=== PATIENT | female | born 2000 | race Caucasian/White ===

== ENCOUNTER 2025-01-23 09:33 | Emergency (ER) | payer BC, SELFPAY ==
--- OUTSIDE RECORDS SUMMARY | 2025-01-22 10:00 | XMS_ITS | Encounter Summary ---
Author Organization [facility] Address [address] [place] [address] Care Team Providers Care Olericulturist Name Role Phone Rene Nguyen Primary Care Provider [phone] Reason for Visit * Reason Comments URI Pt c/o fever and chi lls with nasal drainage, sore throat. Pt symptoms X 1 week Encounter Details Date Type Department Care Team (Late st Contact Info) Description 01/22/2025 10:00 AM COMMERCIAL CARPENTER Office Visit [facility] Family & Internal Medicine [address] [address] Rene Nguyen PA [address] [place] [address] URI (Pt c/o fever and chills with nasal drainage, sore throat. Pt symptoms X 1 week) Social History Tobacco Use Types Packs/Day Years Used Date Smoking Tobacco: Never Passive Smoke Exposure: Never Smokeless Tobacco: Never Tobacco Cessation:Counseling Given: No Alcohol Use Standard Drinks/Week Comments Yes 0 (1 standard drink = 0.6 oz pur e alcohol) social; AUDIT-C Answer Date Recorded Frequency of Alcohol Consumption Never 01/24/2018 Average Number of Drinks Not on file 018 Frequency of Binge Drinking Not on file 11/2017 PHQ-2 Answer Date Recorded Patient Health Questionnaire-2 Score 0 01/18/2025 Comments No Sex and Gender Information Value Date Recorded Sex Assigned at Not on file Legal Sex Female 8:38 PM CDT Gender Identity Not on file Sexual Orientation Not on file documented as of this encounter Last Filed Vital Signs Vital Sign Reading Time Taken Comments Blood Pressure 118/77 01/22/2025 10:04 AM COMMERCIAL CARPENTER Pulse 125 01/22/2025 10:04 AM COMMERCIAL CARPENTER Temperature 38.1 C (100.5 F) 01/22/2025 10:04 AM COMMERCIAL CARPENTER Respiratory Rate 18 01/22/2025 10:04 AM COMMERCIAL CARPENTER Oxygen Saturation 97% 01/22/2025 10:04 AM COMMERCIAL CARPENTER Inhaled Oxygen Concentration - - Weight 73.9 kg (163 lb) 01/22/2025 10:04 AM COMMERCIAL CARPENTER Height 157.5 cm (5' 2) 01/22/2025 10:04 AM COMMERCIAL CARPENTER Body Mass Index 29.81 01/22/2025 10:04 AM COMMERCIAL CARPENTER documented in this encounter Progress Notes * LEENA Bustillos - 01/22/2025 10:00 AM CST Subjective Reason for Visit: URI (Pt c/o fever and chills with nasal drainage, sore throat. Pt symptoms X 1 week) History of Present Illness: 24-year-old female complains of fever chills nasal discharge and sore throat. She was seen 5 days ago in the walk-in clinic given Augmentin. Tolerating medication well and states that the swelling inthe neck has gone down. She did run a fever yesterday. Still has sore throat. Would like reevaluated URI ROS: Review of Systems All other systems reviewed and are negative. Medications: Current Outpatient Medications: amoxicillin-clavulanate (AUGMENTIN) 875-125 MG tablet, Take 1 tablet (875 mg total) by mouth 2 (two) times daily for 10 days., Disp: 20 tablet, Rfl: 0 ENILLORING 0.12-0.015 MG/24HR RING, , Disp: , Rfl: fluticasone propionate (FLONASE) 50 MCG/ACT nasal spray, 1 spray by Nasal route daily. 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 Constitutional: Appearance: Normal appearance. HENT: Right Ear: Tympanic membrane normal. Left Ear: Tympanic membrane normal. Nose: Nose normal. Mouth/Throat: Mucous membranes are moist. Oropharynx is clear. Comments: Bilateral 2+ red tonsils with a white exudate more on the right than the left. Seems to be more ulcerative in appearance. Eyes: Pupils: Pupils are equal, round, and reactive to light. Cardiovascular: Rate and Rhythm: Normal rate and regular rhythm. Pulses: Normal pulses. Heart sounds: Normal heart sounds. No murmur heard. No gallop. Pulmonary: Effort: Pulmonary effort is normal. No respiratory distress. Breath sounds: Normal breath sounds. No wheezing or rales. Musculoskeletal: Cervical back: Normal range of motion. Skin: General: Skin is warm and dry. Capillary Refill: Capillary refill takes less than 2 seconds. Neurological: Mental Status: She is alert. Psychiatric: Mood and Affect: Mood normal. Behavior: Behavior normal. Thought Content: Thought content normal. Judgment: Judgment normal. Filed Vitals: 01/22/25 1004 BP: 118/77 Pulse: (!) 125 Resp: 18 Temp: 100.5 ??F (38.1 ??C) TempSrc: Core SpO2: 97% Weight: 73.9 kg (163 lb) Height: 1.575 m (5' 2) Results for orders placed or performed in visit on 01/22/25 HETEROPHILE ANTIBODIES,SCREEN Result Value Ref Range HETEROPHILE ANTIBODIES NEGATIVE NEGATIVE Internal Control: VALID VALID STREP A RAPID Specimen: THROAT Result Value Ref Range RAPID STREP TEST NEGATIVE NEGATIVE Internal Control: VALID VALID Diagnoses/Impression: 1. Sore throat STREP A RAPID STREP A RAPID LINO OSEI VIRAL CAPSID AG, AB IGM HETEROPHILE ANTIBODIES,SCREEN CANCELED: HETEROPHILE ANTIBODIES,SCREEN Recommendations and Plan: Negative strep, negative Monospot. Will send for Lino-Osei evaluation. Most likely mono due to 2negative strep test and not resolving with amoxicillin. Supportive care only. Follow-up as needed Orders Placed This Encounter LINO OSEI VIRAL CAPSID AG, AB IGM HETEROPHILE ANTIBODIES,SCREEN STREP A RAPID STREP A RAPID Reviewed and updated this visit by provider: LEENA BUSTILLOS Referring Provider: No ref. provider found PCP: LEENA BUSTILLOS [1] Past Medical History: Diagnosis Date GERD (gastroesophageal reflux disease) Pinworm infection 12/16/2017 [2] Past Surgical History: Procedure Laterality Date NONE [3] Social History Socioeconomic History Marital status: Single Tobacco Use Smoking status: Never Passive exposure: Never Smokeless tobacco: Never Vaping Use Vaping status: Never Used Substance and Sexual Activity Alcohol use: Yes Comment: social; Drug use: No Sexual activity: Yes Partners: Male control/protection: Injection Comment: 1 partner in the past year Social History Narrative Lives with mom [4] Family History Problem Relation Name Age of Onset Hypertension Mother Diabetes Father No Known Problems Sister No Known Problems Sister No Known Problems Brother No Known Problems Maternal Grandmother No Known Problems Maternal Grandfather No Known Problems Paternal Grandmother Cancer Paternal Grandfather unknown Cancer Paternal Aunt unknown ERCIAL CARPENTER documented in this encounter Plan of Treatment Pending Results Name Type Priority Associated Diagnoses Date /Time LINO OSEI VIRAL CAPSID AG, AB IGM Lab Routine Sore throat 01/22/2025 10:59 AM COMMERCIAL CARPENTER Scheduled Orders Name Type Priority Associated Diagnoses Orde r Schedule STREP A RAPID Microbiology Routine Sore throat Expected: 01/22/2025, Expires: 01/22/2026 LINO OSEI VIRAL CAPSID AG, AB IGM Lab Routine Sore throat Expected: 01/22/2025, Expires: 01/22/2026 documented as of this encounter Procedures Procedure Name Priority Date/Time Associated Diagnosis Comments STREP A RAPID Routine 01/22/2025 Sore throat HETEROPHILE ANTIBODIES,SCREEN Routine 01/22/2025 Sore throat documented in this encounter Results * HETEROPHILE ANTIBODIES,SCREEN (01/22/2025) HETEROPHILE ANTIBODIES NEGATIVE NEGATIVE [id number], [place] Internal Control: VALID VALID [id number], [facility] 01/22/2025 us Rene [facility] Final Result Performing Organization Address [facility]/ZIP Co de Phone Number -[phone] MARISSA SE[address] [place] [address] [place] [address], [place] [phone] * STREP A RAPID (01/22/2025) RAPID STREP TEST NEGATIVE NEGATIVE [id number] [facility] Internal Control: VALID VALID -[id number] MARISSA SEVERINO [place] STRUCTURE OF ANTERIOR REGION OF NECK / Unknown 01/22/2025 us Rene [facility] - GENERAL ORDERAB LES Final Result Performing Organization Address [facility] Co de Phone Number -[phone] MARISSA SEVERINO [place] [address] [place] [address], [place] [phone] documented in this encounter Visit Diagnoses Diagnosis Sore throat- Primary Acute pharyngitis documented in this encounter Additional Health Concerns Assessment Noted Time PHQ-9 Depression Total Score: 1 05/03/19 22 1:54 PM COMMERCIAL CARPENTER documented as of this encounter Care Teams Olericulturist Relationship Specialty [place] [address] [place] [address] PCP - General PHYSICIAN FIRER POWERHOUSE 09/26/24 documented as of this encounter
--- OUTSIDE RECORDS SUMMARY | 2025-01-22 10:00 | XMS_ITS | Encounter Summary ---
Author Organization [facility] Address [address] [place] [address] Care Team Providers Care Tax Revenue Officer Name Role Phone Rene Nguyen Primary Care Provider [phone] Reason for Visit * Reason Comments URI Pt c/o fever and chi lls with nasal drainage, sore throat. Pt symptoms X 1 week Encounter Details Date Type Department Care Team (Late st Contact Info) Description 01/22/2025 10:00 AM WIPING CLOTH CUTTER Office Visit [facility] Medical Group Family & Internal Medicine [address] [address] Rene Nguyen PA [address] [place] [address] URI (Pt c/o fever and chills [...] Comments Blood Pressure 118/77 01/22/2025 10:04 AM WIPING CLOTH CUTTER Pulse 125 01/22/2025 10:04 AM WIPING CLOTH CUTTER Temperature 38.1 C (100.5 F) 01/22/2025 10:04 AM WIPING CLOTH CUTTER Respiratory Rate 18 01/22/2025 10:04 AM WIPING CLOTH CUTTER Oxygen Saturation 97% 01/22/2025 10:04 AM WIPING CLOTH CUTTER Inhaled Oxygen Concentration - - Weight 73.9 kg (163 lb) 01/22/2025 10:04 AM WIPING CLOTH CUTTER Height 157.5 cm (5' 2) 01/22/2025 10:04 AM WIPING CLOTH CUTTER Body Mass Index 29.81 01/22/2025 10:04 AM WIPING CLOTH CUTTER documented in this encounter Progress Notes * [...] Paternal Grandfather unknown Cancer Paternal Aunt unknown NG CLOTH CUTTER documented in this encounter Plan of Treatment Pending Results Name Type Priority Associated Diagnoses Date /Time LINO OSEI VIRAL CAPSID AG, AB IGM Lab Routine Sore throat 01/22/2025 10:59 AM WIPING CLOTH CUTTER Scheduled Orders Name Type Priority Associated Diagnoses [...] HETEROPHILE ANTIBODIES,SCREEN (01/22/2025) HETEROPHILE ANTIBODIES NEGATIVE NEGATIVE [id number], [place] Internal Control: VALID VALID [id number], [facility] 01/22/2025 us Rene [facility] Final Result Performing Organization Address [facility]/ZIP Co de Phone Number -[phone] MARISSA SEVERINO [place] [address] [place] [address], [place] [phone] * STREP A RAPID (01/22/2025) RAPID STREP TEST NEGATIVE NEGATIVE [id number] [facility] Internal Control: VALID VALID -[id number] MARISSA SEVERINO [place] STRUCTURE OF ANTERIOR REGION OF NECK / Unknown 01/22/2025 us Rene [facility] - GENERAL ORDERAB LES Final Result Performing Organization Address [facility] Co de Phone Number -[phone] MARISSA SEVERINO [place] [address] [place] [address], [place] [phone] documented in this encounter Visit Diagnoses Diagnosis Sore throat- Primary Acute pharyngitis documented in this encounter Additional Health Concerns Assessment Noted Time PHQ-9 Depression Total Score: 1 05/03/19 22 1:54 PM WIPING CLOTH CUTTER documented as of this encounter Care Teams Tax Revenue Officer Relationship Specialty [place] [address] [place] [address] PCP - General PHYSICIAN ROUGH AND TRUING MACHINE OPERATOR 09/26/24 documented as of this encounter
--- OUTSIDE RECORDS SUMMARY | 2025-01-22 11:10 | XMS_ITS | Encounter Summary ---
Author Organization [facility] Address [address] [place] [address] Care Team Providers Care Optometric Tech Name Role Phone Rene Ngueyn Primary Care Provider [phone] Encounter Details Date Type Department Care Team (Late st Contact Info) Description 01/22/2025 11:10 AM BROKERAGE BRANCH MANAGER Laboratory Only [facility] Medical Group Family & Internal Medicine [facility] [address] [place] [address] Rene Nguyen [place] [id number] [place] [address] Social History Tobacco Use Types Packs/Day Years Used Date Smoking Tobacco: Never Passive Smoke Exposure: Never Smokeless Tobacco: Never Alcohol Use Standard Drinks/Week Comments Yes 0 [...] on file documented as of this encounter Plan of Treatment Not on file documented as of this encounter Procedures Procedure Name Priority Date/Time Associated Diagnosis Comments COLLECTION VENOUS BLOOD VENIPUNCTURE Routine 01/22/2025 11:02 AM BROKERAGE BRANCH MANAGER Sore throat documented in this encounter Visit Diagnoses Diagnosis Sore throat- Primary Acute pharyngitis documented in this encounter Additional Health Concerns Assessment Noted Time PHQ-9 Depression Total Score: 1 05/03/19 22 1:54 PM BROKERAGE BRANCH MANAGER documented as of this encounter Care Teams Optometric Tech Relationship Specialty [place] [address] [place] [address] PCP - General PHYSICIAN HANDMADE TILE ARTIST 09/26/24 documented as of this encounter
--- OUTSIDE RECORDS SUMMARY | 2025-01-22 11:10 | XMS_ITS | Encounter Summary ---
Author Organization [facility] Address [address] [place] [address] Care Team Providers Care Backer Up Name Role Phone Rene Nguyen Primary Care Provider [phone] Encounter Details Date Type Department Care Team (Late st Contact Info) Description 01/22/2025 11:10 AM LABORER CHEESEMAKING Laboratory Only [facility] Medical Group Family & Internal Medicine [facility] [address] [place] [address] Rene Nguyen [place] [address] [place] [address] Social History Tobacco Use Types Packs/Day [...] VENOUS BLOOD VENIPUNCTURE Routine 01/22/2025 11:02 AM LABORER CHEESEMAKING Sore throat documented in this encounter Visit Diagnoses Diagnosis Sore throat- Primary Acute pharyngitis documented in this encounter Additional Health Concerns Assessment Noted Time PHQ-9 Depression Total Score: 1 05/03/19 22 1:54 PM LABORER CHEESEMAKING documented as of this encounter Care Teams Backer Up Relationship Specialty [place] [address] [place] [address] PCP - General PHYSICIAN DIGITAL PHOTO PRINTER 09/26/24 documented as of this encounter
--- OUTSIDE RECORDS SUMMARY | 2025-01-22 13:11 | XMS_ITS | Encounter Summary ---
Author Organization [facility] Address [address] [place] [address] Care Team Providers Care Hook And Eye Sewing Machine Operator Name Role Phone Rene Nguyen Primary Care Provider Encounter Details Date Type Department Care Team (Late st Contact Info) Description 01/22/2025 1:11 PM LACQUER SPRAYER Hospital Encounter [facility] Laboratory [address] [place], [place] [id number] [place] [address] [place] [address] Social History Tobacco Use Types Packs/Day Years [...] as of this encounter Plan of Treatment Pending Results Name Type Priority Associated Diagnoses Date /Time LINO OSEI VIRAL CAPSID AG, AB IGM Lab Routine Sore throat 01/22/2025 10:59 AM LACQUER SPRAYER Scheduled Orders Name Type Priority Associated Diagnoses Orde r Schedule LNIO OSEI VIRAL CAPSID AG, AB IGM Lab Routine Sore throat Once for 1 Occurrences starting 01/22/2025 until 01/22/2025 documented as of this encounter Visit Diagnoses Diagnosis Sore throat Acute pharyngitis documented in this encounter Additional Health Concerns Assessment Noted Time PHQ-9 Depression Total Score: 1 05/03/19 22 1:54 PM LACQUER SPRAYER documented as of this encounter Care Teams Hook And Eye Sewing Machine Operator Relationship Specialty [place] [address] [place] [address] PCP - General PHYSICIAN WHISTLE PUNK 09/26/24 documented as of this encounter
--- OUTSIDE RECORDS SUMMARY | 2025-01-22 13:11 | XMS_ITS | Encounter Summary ---
Author Organization [facility] Address [address] [place] [address] Care Team Providers Care Atg Architect Name Role Phone Rene Nguyen Primary Care Provider [phone] Encounter Details Date Type Department Care Team (Late st Contact Info) Description 01/22/2025 1:11 PM CARPENTER ROUGH Hospital Encounter [facility] Laboratory [address] [place], [place] [phone] [place] [address] [place] [address] Social History Tobacco Use Types Packs/Day Years [...] Lab Routine Sore throat 01/22/2025 10:59 AM CARPENTER ROUGH Scheduled Orders Name Type Priority Associated Diagnoses Orde r Schedule LINO OSEI VIRAL CAPSID AG, AB IGM Lab Routine Sore throat Once for 1 Occurrences starting 01/22/2025 until 01/22/2025 documented as of this encounter Visit Diagnoses Diagnosis Sore throat Acute pharyngitis documented in this encounter Additional Health Concerns Assessment Noted Time PHQ-9 Depression Total Score: 1 05/03/19 22 1:54 PM CARPENTER ROUGH documented as of this encounter Care Teams Atg Architect Relationship Specialty [place] [address] [place] [address] PCP - General PHYSICIAN ASSEMBLER EQUIPMENT 09/26/24 documented as of this encounter
--- NOTE | ~2025-01-23 | CT_ITS ---
EXAMINATION: CT soft tissue neck w con COMPARISON: None HISTORY: Right tonsillar abscess TECHNIQUE: Axial images were obtained with IV contrast. Sagittal, coronal reconstruction images were obtained from the axial views. Omnipaque 370, [address] scan performed using dose optimization techniques including the following automated exposure control; adjustment of mA and/or kV; use of iterative reconstruction technique. Automatic exposure control was used to reduce radiation dose. Permanent radiation dose record is archived to PACS. FINDINGS: Visualized brain parenchyma is unremarkable. There is no thickening of the prevertebral space or asymmetry of the base of the tongue. There is narrowing of the airway with edema of the pontine tonsillar tissue bilaterally with bilateral early probable abscesses noted the largest on the right side 7x 8 mm with dense probable phlegmon . There is no asymmetry of the vocal cords. No thyroid nodules. No lymphadenopathy in the anterior superior mediastinum. There are enlarged lymph nodes in the jugulodigastric spaces the largest right-sided 2.5 x 2 cm. Prominent posterior cervical lymph nodes. No supraclavicular lymphadenopathy. The submandibular and parotid glands appear unremarkable. The lung apices are unremarkable. No sclerotic or lytic lesions. No significant sinusitis. IMPRESSION: Severe tonsillitis with early abscess formation . There is significant narrowing of the airway and close clinical observation is recommended. ENT consultation suggested. Follow-up recommended to evaluate for improvement. Reviewed, dictated and finalized at location P. WRITER HAND IMPRESSION: Severe tonsillitis with early abscess formation . There is signific ant narrowing of the airway and close clinical observation is recommended. ENT consultation suggested. Follow-up recommended to evaluate for improvement.
--- OUTSIDE RECORDS SUMMARY | 2025-01-23 09:35 | XMS_ITS | Encounter Summary ---
Author Organization [facility] Address [address] [place] [address] Care Team Providers Care Clinical Dietitian Name Role Phone Rene Nguyen Primary Care Provider [phone] Encounter Details Date Type Department Care Team (Late st Contact Info) Description 01/18/2025 Results Follow-Up [facility] Medical Group Family & Internal Medicine [facility] [address] [place] [address] [place] [address] [place] [address] STREP A RAPID, CORONAVIRUS (COVID-19) INFLUENZA A & B ANTIGEN IA PANEL, CULTURE STREP A Social History Tobacco Use Types Packs/Day Years [...] on file documented as of this encounter Functional Status * Over the past 2 weeks, how often have you been bothered by any of the following problems? Question Answer Date of Assessment Author Status Little interest or pleasure in doing things Not at all 01/18/2025 7:21 AM BUILDING APPRAISER Tete Garcia MA Act jelena Feeling down, depressed, or hopeless Not at all 01/18/2025 7:21 AM BUILDING APPRAISER Tete Garcia MA Active Patient Health Questionnaire-2 Score 0 01/18/2025 7:21 AM BUILDING APPRAISER Tete Garcia MA Active documented as of this encounter Plan of Treatment Not on file documented as of this encounter Visit Diagnoses Not on filedocumented in this encounter Additional Health Concerns Infection Onset Date Last Indicated Resolved Time Respiratory Rule Out 01/18/2025 01/18/2025 025 7:45 AM BUILDING APPRAISER Assessment Noted Time PHQ-9 Depression Total Score: 1 05/03/19 22 1:54 PM BUILDING APPRAISER documented as of this encounter Care Teams Clinical Dietitian Relationship Specialty [place] [address] [place] [address] PCP - General PHYSICIAN STREET ENGINEER 09/26/24 documented as of this encounter
--- OUTSIDE RECORDS SUMMARY | 2025-01-23 09:35 | XMS_ITS | Encounter Summary ---
Author Organization [facility] Address [address] [place] [address] Care Team Providers Care Nursery Attendant Name Role Phone Rene Nguyen Primary Care Provider [phone] Encounter Details Date Type Department Care Team (Latest Contact Info) Description 01/22/2025 Travel Social History Tobacco Use Types Packs/Day Years [...] filedocumented in this encounter Additional Health Concerns Assessment Noted Time PHQ-9 Depression Total Score: 1 05/03/19 22 1:54 PM ROLL FORMING MACHINE SET UP MECHANIC documented as of this encounter Care Teams Nursery Attendant Relationship Specialty [place] [address] [place] [address] PCP - General PHYSICIAN ESOL TEACHER 09/26/24 documented as of this encounter
--- OUTSIDE RECORDS SUMMARY | 2025-01-23 09:35 | XMS_ITS | Clinical Summary ---
Author Organization [facility] Address [address] [place] [id number] Care Team Providers Care Electrochemist Name Role Phone Rene Nguyen Primary Care Provider [phone] Allergies Active Allergy Reactions Criticality Noted Date Comments Azithromycin Hives 07/18/2023 Medications fluticasone propionate (FLONASE) 50 MCG/ACT nasal sprayIndicatio ns:Non-recurre nt acute serous otitis media of both ears 1 spray by Nasal route daily. 16 g 4 Active Additional Information Patient not taking.Reported on 01/22/2025 ENILLORING 0.12-0.015 MG/24HR RING 5 Active amoxicillin-cl avulanate (AUGMENTIN) 875-125 MG tabletIndicati ons:Sore throat,Tonsill ar abscess Take 1 tablet (875 mg total) by mouth 2 (two) times daily for 10 days. 20 tablet 5 01/29/20 25 Active medroxyPROGEST ERone 150 MG/ML injection 1 01/19/20 25 Discontin ued(Alter caitlyn therapy) Active Problems Problem Noted Date Diagnosed Date BMI (body mass index), pedia tric, 5% to less than 85% for age 0710/07/2018 Resolved Problems Problem Noted Date Diagnosed Date Resolved Date Pinworm infection 12/16/2017 02/25/2018 Encounters Date Type Department Care Team Description 01/22/2025 1:11 PM [facility] Hospital Encounter [facility] [address] [place] [address] Rene Nguyen PA 01/22/2025 11:10 AM CHEMICAL RECOVERY OPERATOR Laboratory Only [address] [phone] Rene Nguyen PA 01/22/2025 10:00 AM CHEMICAL RECOVERY OPERATOR Office Visit [address] [phone] Rene Nguyen PA URI (Pt c/o fever and chills with nasal drainage, sore throat. Pt symptoms X 1 week) 01/22/2025 Travel 01/19/[address] [phone] Rene Nguyen PA School Excuse 01/18/2025 12:49 PM CHEMICAL RECOVERY OPERATOR - 01/18/2025 11:59 PM CHEMICAL RECOVERY OPERATOR Hospital Encounter [facility] [address] [place] [address] Serina Wooten PA Discharge Disposition: Home or Self Care (Routine Discharge) 01/18/2025 7:40 AM CHEMICAL RECOVERY OPERATOR Office Visit [address] [phone] Serina Wooten, PA Sore Throat (Sinus drainage for almost a week but Right gland swollen-x 2-3 days-drainage, fever yesterday) 01/18/2025 Results Follow-Up [address] [phone] Serina Wooten PA STREP A RAPID, CORONAVIRUS (COVID-19) INFLUENZA A & B ANTIGEN IA PANEL, CULTURE STREP A 01/18/2025 Travel from Last 3 Months Immunizations Immunization Administration Dates Next Due DTaP (Daptacel) 12/12/2014,02/13/2004 Dtap 12/12/2006, 4,04/14/2003,01/17,2002 Flumist (Intranasal) 01/13/2014,12/10/2011 Fluzone 6 Months+ Quad (0.5 mL Prefilled Syringe) 02/25/2018 Fluzone Pediatric - 6-35 Mon ths (Prefilled Syringe IIV4) 11/29/2015 HPV GARDASIL 9-VALENT 11/29/2015,12/13/2014 HPV4 (Gardasil) 06/07/2014,06/07/2012 Hepatitis A (Havrix [address]) 11/14/2005, 005 Hepatitis A Vaccine - 2 Dose 11/14/2005,12/22/19 05 Hepatitis B (Generic: Adult) 03/14/2004,12/16/19 03,2002 Hepatitis B Pediatric 04/14/2003,2002,09/17 Hib 01/07/2004, 4,02/09/2003,11/18 Hib (Generic) 01/07/2004, 4,02/09/2003,11/18 Hib Vaccine, Prp-Omp 01/07/2004,04/14/19 04,02/09/2003,11/18 Hib-MenCY (MenHibrix) 01/07/2004, 004,02/09/2003,11/18 Influenza (Generic) 02/13/2014,01/01/2006 Influenza 3 yrs + Preservati ve Free (Fluzone) 02/01/2011 Influenza 3 yrs + with Prese rvative (Fluzone) 03/06/2010 Influenza Adult (Generic) 05/11/2022,01/2018,02/13/2014,11/17,02/01/2011,03/06/2010,01/02/20 06 Influenza Virus, Split 6-35 Mo 01/07/2004 MENINGOCOCCAL A C Y&W-135 oligosaccharide (MENVEO) 10/23/2019 MMR 12/12/2006,01/07/2004 Menactra 06/07/2014 Pneumococcal (Pneumovax 23) 12/21/2004, 3,2002 Pneumococcal (Prevnar 7) 11/29/2015,08/2004,02/09/2003,11/18 Polio IPV (Ipol) 12/12/2006, 4,02/09/2003,11/18 Polio Ipv (Generic) 12/12/2006, 4,02/09/2003,11/18 Tdap (Adacel) 10/21/2023 Tdap (Generic) 10/21/2013 Varicella (Varivax) 12/12/2006 Varicella Vaccine 01/07/2004,12/13/2003,12/08/19 04 Family History Medical History Relation Comments No Known Problems Brother Diabetes Father No Known Problems Maternal Grandfather No Known Problems Maternal Grandmother Hypertension Mother Cancer Paternal Aunt unknown Cancer Paternal Grandfather unknown No Known Problems Paternal Grandmother No Known Problems Sister 1 No Known Problems Sister 2 Relation Status Comments Brother Alive Father Alive Maternal Grandfather Alive Maternal Grandmother Alive Mother Alive Paternal Aunt Paternal Grandfather Paternal Grandmother Alive Sister 1 Alive Sister 2 Alive Social History Tobacco Use Types Packs/Day Years [...] on file Sexual Orientation Not on file Last Filed Vital Signs Vital Sign Reading Time Taken Comments Blood Pressure 118/77 01/22/2025 10:04 AM CHEMICAL RECOVERY OPERATOR Pulse 125 01/22/2025 10:04 AM CHEMICAL RECOVERY OPERATOR Temperature 38.1 C (100.5 F) 01/22/2025 10:04 AM CHEMICAL RECOVERY OPERATOR Respiratory Rate 18 01/22/2025 10:04 AM CHEMICAL RECOVERY OPERATOR Oxygen Saturation 97% 01/22/2025 10:04 AM CHEMICAL RECOVERY OPERATOR Inhaled Oxygen Concentration - - Weight 73.9 kg (163 lb) 01/22/2025 10:04 AM CHEMICAL RECOVERY OPERATOR Height 157.5 cm (5' 2) 01/22/2025 10:04 AM CHEMICAL RECOVERY OPERATOR Body Mass Index 29.81 01/22/2025 10:04 AM CHEMICAL RECOVERY OPERATOR Plan of Treatment Health Maintenance Due Date Last Done Comments Cervical Cancer Screening Pap Smear (Age 21 to 29) Every 3 Years 2002 Cervical Cancer Screening 2002 Chlamydia Screening Females ages 16-24 2018 Meningococcal B Vaccine (1 of 2 - Standard) 2018 Annual Physical 10/17/2024 10/18/2023 COVID-19 Vaccine ( season) 2024 05/11/2022, 01/20/2021, 12/19/2020 Influenza Adult (#1) 2024 05/11/2022, 02/25/2018, 02/25/2018, Additional history exists DTaP, Tdap and Td Vaccines (9 - Td or Tdap) 10/20/2033 10/21/2023, 12/12/2014, 10/21/2013, Additional history exists Hepatitis C 10/17/2053 Postponed from 2020 (Patient Refused) Hepatitis B Vaccines Completed 03/14/2004, 04/14/2003, 2002, Additional history exists Hepatitis A Vaccines Completed 11/14/2005, 11/14/2005, 12/21/2004, Additional history exists HPV Vaccines Completed 11/29/2015, 11/17, 06/07/2014, Additional history exists Pneumococcal Vaccine: Pediatrics (0 to 5 Years) and At-Risk Patients (6 to 49 Years) Aged Out 11/29/2015, 12/21/2004, 12/21/2004, Additional history exists No longer eligible based on patient's age to complete this topic Meningococcal Vaccine Completed 10/23/2019, 015 PHQ-2 (Physician [place]) Completed 01/18/2025 RSV Immunizations Under 20 Months Aged Out No longer eligible based on patient's age to complete this topic Procedures Procedure Name Priority Date/Time Associated Diagnosis Comments COLLECTION VENOUS BLOOD VENIPUNCTURE Routine 01/22/2025 11:02 AM CHEMICAL RECOVERY OPERATOR Sore throat STREP A RAPID Routine 01/22/2025 Sore throat HETEROPHILE ANTIBODIES,SCREEN Routine 01/22/2025 Sore throat CULTURE STREP A Routine 01/18/2025 7:45 AM CHEMICAL RECOVERY OPERATOR Sore throat CORONAVIRUS (COVID-19) INFLUENZA A & B ANTIGEN IA PANEL Routine 01/18/2025 Suspected COVID-19 virus infection STREP A RAPID Routine 01/18/2025 Sore throat from Last 3 Months Results * STREP A RAPID (01/22/2025) Only the most recent of2 resultswithin the time period is included. RAPID STREP TEST NEGATIVE NEGATIVE [id number], [place] Internal Control: VALID VALID [id number], [place] STRUCTURE OF ANTERIOR REGION OF NECK / Unknown 01/22/2025 us Rene [facility] MICROBI[facility] - GENERAL ORDERAB LES Final Result [id number], [place] [address] [place] [address], [place] [phone] * HETEROPHILE ANTIBODIES,SCREEN (01/22/2025) HETEROPHILE ANTIBODIES NEGATIVE NEGATIVE [id number], [place] Internal Control: VALID VALID [id number], [place] 01/22/2025 us Rene [facility] Final Result [id number], [place] [address] [place] [address], [place] [phone] * CULTURE STREP A (01/18/2025 7:45 AM CHEMICAL RECOVERY OPERATOR) SPEC DESCRIPTION THROAT 01/18/2025 12:51 PM CHEMICAL RECOVERY OPERATOR [facility] SPECIAL REQUESTS NO SPECIAL REQUEST 01/18/2025 12:51 PM CHEMICAL RECOVERY OPERATOR [facility] CULTURE RESULT NO STREPTOCOCCUS PYOGENES (GROUP A) ISOLATED 01/20/2025 7:17 AM CHEMICAL RECOVERY OPERATOR [facility] THROAT SWAB / Unknown 01/18/2025 7:45 AM CHEMICAL RECOVERY OPERATOR 01/18/2025 12:56 PM CHEMICAL RECOVERY OPERATOR Serina [facility] MICROBI[facility] - GENERAL ORDER JUANITA Final Result [facility] [address] [place] [address], [place] [phone] [facility] [address] [place] [address], [place] [phone] * CORONAVIRUS (COVID-19) INFLUENZA A & B ANTIGEN IA PANEL (01/18/2025) CORONAVIRUS ANTIGEN IA NEGATIVE NEGATIVE [id number], [place] INFLUENZA A NEGATIVE NEGATIVE [id number], [place] INFLUENZA B NEGATIVE NEGATIVE [id number], [place] Internal Control: VALID VALID [id number], [place] NASAL STRUCTURE / Unknown 01/18/2025 Serina [facility] MICROBIOLOG[facility] - GENERAL ORDER JUANITA Final Result Performing Organization Address [facility]/ZIP Co de Phone Number -[phone], [place] [address] [place] [address], [place] [phone] from Last 3 Months Insurance [facility] Care Teams Electrochemist Relationship Specialty [place] [address] [place] [address] PCP - General PHYSICIAN PRINCIPAL WEB DEVELOPER 09/26/24
--- OUTSIDE RECORDS SUMMARY | 2025-01-23 09:35 | XMS_ITS | Data Portability ---
Author Organization [facility], [id number] Address [address] [place] [address] Assessment No assessment recorded. Plan of Treatment Reminders Order Date Submit Date Provider Last Modified By Organization Details Last Modified Time Details Appointments ANNUAL- EST 15 2025 08:30A M GET KAUFMAN WHNP Not available Not available Not available Lab pap, LB 2024 0[address] [place] [facility] ([facility]), [address] , [facility] [address], [place], [address], 08/03/2024 11:59:01 Referral None recorded. Procedures None recorded. Surgeries None recorded. Imaging None recorded. Medication Orders EnilloRin g 0.12 mg-0.015 mg/24 hr vaginal ring 2024 025 [place] [id number], [address], [place], [id number], 07/29/2024 09:54:07 Patient TargetsNo targets recorded. Patient InstructionsNo instructions recorded. Reason for Referral None Reported. Results Created Date Observation Date Name Description Value Unit Range Abnormal Flag Note LastModifiedBy Organization Detail LastModifiedTime 07/30/1908/03/2024 PAP TEST THIN PREP Pap test thin prep Negati ve for Intrae pithel ial Lesion or Malign alan normal ACCES ANNE #: 25-PS -2420 14 Sourc e: Cervi tiffanie/E ndoce rvica l LMP: Date Taken : 07/29 Speci men Type: ThinP rep Vial Date Repor ethan: 2024 Clini tiffanie Data: Hormo danelle: unkno wn unkno wn Last Pap: no previ ous pap (no previ ous pap) Cytot ech: Richard Jackman r, CT( CP) Date Repor ethan: 2024 Revie wed By: Raymond Orr z, CT( CP) Revie wed By: Adriano Holbrook on, CT( CP) Speci men Adequ acy: Satis facto ry for evalu ation Endoc ervic al/tr ansfo rmati on zone compo nent prese nt Gener al Categ oriza tion: NEGAT SAL FOR INTRA EPITH ELIAL LESIO N OR MALIG ARY This speci men has been marielle zed by the ThinP rep Imagi ng Syste m, an inter activ e compu ter syste m which jong ts the lab in the scree kin of ThinP rep Pap Test slide s. Follo wing imagi ng, the slide was revie wed by a Cytot echno logis t and/o r Patho logis t. Cervi tiffanie cytol ogy is a scree kin test prima rily for squam ous cance rs and precu rsors and has assoc iated false -nega tive and false -posi tive resul ts. New techn ologi es such as liqui d-bas ed prepa ratio ns may decre ase but will not elimi caitlyn all false -nega tive resul ts. Regul ar sampl ing and follo w-up of unexp logan d clini tiffanie signs and sympt oms are recom agnieszka d to minim ize false negat sal resul ts. End of Repor t Techn ical servi diana provi ded by [email or web address], [facility]/a [facility], [address] [place] [address] Elsa mccracken MD, Labor ator Dire tor. Case revie wed and diagn osis rende red at [facility] [email or web address], [employer], d/b/a [facility], [address] [place] [address] Elsa mccracken MD, [facility] tor. CONFI DENTI AL Not Available [facility] ([facility]) [address], [place], [address], 08/03/2024 11:59:01 Result Notes None recorded. Problems Name Problem SNOMED Code Status Onset Date Resolution Date Notes Provider Name and Address Organization Details Recorded Time Attention deficit hyperactivi ty disorder 921993391 Active ADHD, Problem Code: 314.01; Problem Code Type: ICD-9; Not Available [facility] 12:39:18 Problem Notes None recorded. Medical Equipment None Reported. Allergies Allergen ID Allergen Name Allergen Category Reaction Reaction Severity Criticality Documentation Date Start Date Code Code System Note Provider Name and Address Organization Details Recorded Time 449381 azithromy ashu medicatio n hives Not available Not available 07/16/2024 90402 RxNorm Not Available [facility] 12:39:48 Medications Name Sig Start Date Stop Date Status Note LastModified by Organization Details LastModified Time azithromyci n 250 mg tablet TAKE 2 TABLETS BY MOUTH FOR 1 DAY THEN TAKE 1 TABLET BY MOUTH DAILY FOR 4 DAYS 07/22 completed Not Available Not Available Not Available sulfamethox azole 800 mg-trimetho prim 160 mg tablet TAKE 1 TABLET BY MOUTH TWICE DAILY FOR 7 DAYS 07/22 completed Not Available Not Available Not Available fluticasone propionate 50 mcg/actuati on nasal spray,suspe nsion SHAKE LIQUID AND USE 1 SPRAY IN EACH NOSTRIL DAILY 07/22 completed Not Available Not Available Not Available PreviDent 5000 Booster Plus 1.1 % dental paste APPLY 1-2 TIMES DAILY TOOTHPAST E 07/22 completed Not Available Not Available Not Available EnilloRing 0.12 mg-0.015 mg/24 hr vaginal ring Insert 1 ring PV. Leave in place for 3 weeks and remove. Reinsert new ring 1 week later. 2024 active Not Available Not Available Not Avai lable Vitals Date Recorded Body height Body mass index (BMI) Body weight Systolic And Diastolic Provider Name and Address Organization Details Last Updated DateTime 07/29/2024 157.48 cm 29.8 kg/m2 83913.56 g 112/66 mm[Hg] Marybeth Aldridge(TERM ) [facility] 07/29/2024 09:35:58 Social History Question Answer Notes LastModified by Organizat ion Details LastModified Time Tobacco Smoking Status Never Smoker Note: Not Available [facility] 07/16/2024 14:30:01 What Is Your Relationship Status? Other Note: Single [facility].1178 Information not available 07/16/2024 Sex: Unknown Functional Status Question Answer Note LastModified by Organizat ion Details LastModified Time Do you use any illicit or recreational drugs? No Note: Information not available 07/16/2024 What is your level of alcohol consumption? 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 Family History Relationship Description Onset Age of this Age Resolved Age Notes LastModified by Organization Details LastModified Time Unspecified Relation Malignant neoplastic disease Cancer aunt- cancer ous cells (not sure where from, but remove d female organs ) Relati ve: 'Aunt' ; Not available 07/16/2024 15:02:21 Unspecified Relation Hypertensive disorder High Blood Pressu re grandp juvets Not available 07/16/2024 15:02:21 Unspecified Relation Heart disease Heart Diseas e grandp juvets Not available 07/16/2024 15:02:21 Maternal Grandmother Kidney disease Kidney Proble ms Not available 07/16/2024 15:02:21 Mother Kidney disease Kidney Proble ms Not available 07/16/2024 15:02:22 Medical History Condition Response Cancer- Genetic screening Psych- ADD Y Gynecological History Statement/Question Response HPV Vaccine Completed Flow Moderate Date of LMP 07/10/2024 Current Control Method: Ring Date of Last HPV Test Duration of Flow (days) 6 Age at Menarche 15 Current Control Method Vaginal Rin g Obstetrics History GPAL:G 0 P 0 0 0 0 Type Value Multiple Births 0 Full Term 0 Induced 0 Spontaneous 0 Premature 0 Living 0 Ectopics 0 Total 0 Immunizations Vaccine Type Date Status Note Provider Nam e and Address Organization Details Recorded Time HPV9 5 completed Marybeth Ketten(TERM) [place], [place] - [facility] 07/22/2024 14:41:20 Influenza, split virus, quadrivalent, preservative 6 completed Marybeth Ketten(TERM) [place] [facility] 07/29/2024 09:31:12 Influenza, split virus, quadrivalent, preservative 4 completed Marybeth Ketten(TERM) [place] [facility] 07/29/2024 09:31:12 Hib, unspecified formulation 4 completed Marybeth Ketten(TERM) [place] [facility] 07/29/2024 09:31:12 Hib, unspecified formulation 3 completed Marybeth Ketten(TERM) [place] [facility] 07/29/2024 09:31:12 Hib, unspecified formulation 4 completed Marybeth Ketten(TERM) [place] [facility] 07/29/2024 09:31:12 Hib, unspecified formulation 3 completed Marybeth Ketten(TERM) [place] [facility] 07/29/2024 09:31:12 Influenza, injectable,quadriv alent, preservative free, pediatric 6 completed Marybeth Ketten(TERM) [place] [facility] 07/29/2024 09:31:12 HPV9 6 completed Marybeth Ketten(TERM) [place] [facility] 07/29/2024 09:31:12 HPV9 5 completed Marybeth Ketten(TERM) [place] [facility] 07/29/2024 09:31:12 IPV 4 completed Marybeth Ketten(TERM) [place] [facility] 07/29/2024 09:31:12 IPV 7 completed Marybeth Ketten(TERM) [place] [facility] 07/29/2024 09:31:12 IPV 3 completed Marybeth Ketten([place] [facility] 07/29/2024 09:31:12 IPV 3 completed Marybeth Ketten[place] [facility] 07/29/2024 09:31:12 Influenza, MDCK, quadrivalent, PF 3 completed Marybeth Ketten([place] [facility] 07/29/2024 09:31:12 Influenza, live, trivalent, intranasal, PF 2 completed Marybeth Ketten(TERM[place] [facility] 07/29/2024 09:31:12 Influenza, live, trivalent, intranasal, PF 4 completed Marybeth Ketten(TERM[place] [facility] 07/29/2024 09:31:12 MMR 7 completed Marybeth Ketten(TERM[place] [facility] 07/29/2024 09:31:12 MMR 4 completed Marybeth Ketten([place] [facility] 07/29/2024 09:31:12 COVID-19, mRNA, LNP-S, PF, 100 mcg/0.5mL dose or 50 mcg/0.25mL dose 1 completed Marybeth Ketten(TERM) [place] [facility] 07/29/2024 09:31:12 COVID-19, mRNA, LNP-S, PF, 100 mcg/0.5mL dose or 50 mcg/0.25mL dose 1 completed Marybeth Ketten(TERM) [place] [facility] 07/29/2024 09:31:12 COVID-19, mRNA, LNP-S, bivalent, PF, 50 mcg/0.5 mL or 25mcg/0.25 mL dose 3 completed Marybeth Ketten(TERM) [place] [facility] 07/29/2024 09:31:12 pneumococcal conjugate PCV 7 3 completed Marybeth Ketten([place]M) [place] [facility] 07/29/2024 09:31:12 pneumococcal conjugate PCV 7 5 completed Marybeth Ketten([place]M) [place] [facility] 07/29/2024 09:31:12 pneumococcal conjugate PCV 7 3 completed Marybeth Ketten([place] [facility] 07/29/2024 09:31:12 influenza, unspecified formulation 4 completed Marybeth Miketen([place]M) [place] [facility] 07/29/2024 09:31:12 Tdap 4 completed Marybeth Mckeonten(TERM) [place] [facility] 07/29/2024 09:31:12 Tdap 4 completed Marybeth Miketen([place]M) [place] [facility] 07/29/2024 09:31:12 varicella 7 completed Marybeth Miketen(TERM) [place] [facility] 07/29/2024 09:31:12 varicella 4 completed Marybeth [place]eten([place]M) [place] [facility] 07/29/2024 09:31:12 Influenza, split virus, trivalent, preservative 0 completed Marybeth [place]eten[place]M) [place] [facility] 07/29/2024 09:31:12 Influenza, split virus, trivalent, PF 1 completed Marybeth Ketten[place] [facility] 07/29/2024 09:31:12 HPV, quadrivalent 3 completed Marybeth Ketten[place] [facility] 07/29/2024 09:31:12 HPV, quadrivalent 5 completed Marybeth Ketten([place] [facility] 07/29/2024 09:31:12 Hep B, adolescent or pediatric 4 completed Marybeth Ketten[place] [facility] 07/29/2024 09:31:12 Hep B, adolescent or pediatric 3 completed Marybeth Ketten[place]M) [place] [facility] 07/29/2024 09:31:12 Hep B, adolescent or pediatric 3 completed Marybeth Ket[place] [facility] 07/29/2024 09:31:12 Hep B, adult 4 completed Marybeth Ketten[place] [facility] 07/29/2024 09:31:12 Hep A, ped/adol, 2 dose 6 completed Marybeth Ket[place]M) [place] [facility] 07/29/2024 09:31:12 Hep A, ped/adol, 2 dose 5 completed Marybeth Ket[place] [facility] 07/29/2024 09:31:12 Meningococcal MCV4O 0 completed Marybeth Ketten([place]M) [place] [facility] 07/29/2024 09:31:12 meningococcal MCV4P 5 completed Marybeth Ketten([place] [facility] 07/29/2024 09:31:12 DTaP 7 completed Marybeth Ket[place] [facility] 07/29/2024 09:31:12 DTaP 3 completed Marybeth Ket[place] [facility] 07/29/2024 09:31:12 DTaP 4 completed Marybeth Ket[place] [facility] 07/29/2024 09:31:12 DTaP 3 completed Marybethtyree Aldridge(TERM) [place] [facility] 07/29/2024 09:31:12 Influenza, split virus, quadrivalent, PF 8 completed Marybeth Ketten(TERM) [place] [facility] 07/29/2024 09:31:12 Past Encounters Encounter ID Performer Location Encounter Start Date Encounter Closed Date Diagnosis/Indication Diagnosis SNOMED-CT Code Diagnosis ICD10 Code Diagnosis IMO Codes Diagnosis Note [id number] [address]A [address]RA[address], MD [id number] [place] [address] 07/29/2024 09:16:42 07/29/2024 09:55:24 Screening for malignant neoplasm of cervix 314812623 Z12.4 -pap today Gynecologi c examination 75619025 Z01.716 8926092 -f/u 1 year for annual CHEF PASSENGER VESSEL exam Contraception status 243 198904 Z30.44 [id number] 07/29/24-co ntinue use of enilloring Depression screening 171 153563 Z13.31 6341814 07/29/24-sc ore 7-denies any mood issues Health Concerns Section Related Observation LastModified by Organization Detai ls LastModified Time None Recorded Concern Status LastModified by Organization Details LastModified Time None Recorded Advance Directives Directive None Recorded Payers Insurance Date Sequence Insurance Name Policy Number Policy Keller Covered Member ID Keller Member ID Guarantor Name 07/29/2024 1 [facility] [id number] 3 Brown Richardson [id number] Quin Davila Notes Date Note Type Note Provider Name and Address Organization Details Recorded Time 5 text/html [facility] Annual Well-Women Visit Age 21-29Reported by PatientPreventive Health ScreeningsFor current medical history, patient reportsreviewed and documented. For relevant family history, patient reportsno family history of breast cancer. For last pap smear, patient reportsdue.ContraceptionFor contraceptive method, patient reportssatisfied with current methodandcontraceptive method: contraceptive ring.Sexually ActiveFor sexually active, patient reportsyes: same partner.STI ScreenFor sti screen, patient reportsdeclines sti testing.Menstrual History/SymptomsFor menstrual cycle, patient reportsnormal menstrual cycle and flow. GET ALMEIDA [address], [place], [address], [facility] 07/29/2024 09:56:37 OBGyn Episode No OBEpisode recorded.
[2025-01-23 09:48] VITALS: BP 120/80; PULSE 101; RESP 20; TEMP 36.9; O2SAT 97
--- NOTE | 2025-01-23 10:08 | ED_ITS ---
HPI - General Adult General Chief complaint: Unspecified Stated complaint: tonsil problems Time Seen by Provider: 01/23/25 09:56 Source: patient Mode of arrival: ambulatory Limitations: no limitations History of Present Illness HPI narrative: 24 years old female came to the ED complaining of sore throat for the last 7 days, tested negative for mono once, negative for strep throat, negative for COVID flu and RSV. Patient was started on Augmentin 6 days ago without any improvement, Currently complaining of postnasal discharge, cleaning her throat, intermittent coughing, right ear aches, and right-sided tonsillar pain. She report fever broke 2 days ago. Related Data Allergies Allergy/AdvReac Type Severity Reaction Status Date / Time azithromycin Allergy Intermediate Hives Verified 01/23/25 09:59 Review of Systems 2 Review of Systems: All systems reviewed & are unremarkable except as noted in HPI and below PMFSH Past Medical History Medical History Acute tonsillitis Exam 2 Narrative: General appearance: Well-developed, well-nourished Skin: Normal color Head: Normocephalic, nontraumatic Eyes: Clear conjunctiva ENT: Large, erythematous right tonsils with yellow discharge Neck: Supple, nontender Chest and respiratory: Airway patent, no respiratory distress, no accessory muscle use Heart: Regular rate/rhythm Abdomen: Soft, nontender, no organomegaly, quiet bowel sounds Vascular: Normal peripheral pulses, normal capillary refill. Musculoskeletal: Normal range of motion, nontender back Neurologic: Alert and oriented ?3, LAW LIBRARIAN is normal as tested, no gross motor deficit Course Consultations Consultation #1: DR DAMIAN KEEP PATIENT IN THE ED, START UNASYN IV Date: 01/23/25 Vital Signs Vital signs: Vital Signs Temperature 36.9 C 01/23/25 09:48 Pulse Rate 101 H 01/23/25 09:48 Respiratory Rate 20 01/23/25 09:48 Blood Pressure 120/80 01/23/25 09:48 Pulse Oximetry 97 01/23/25 09:48 Oxygen Delivery Room Air 01/23/25 09:48 Temperature 36.9 C 01/23/25 09:48 Pulse Rate 76 01/23/25 15:21 Respiratory Rate 20 01/23/25 15:21 Blood Pressure 122/80 01/23/25 15:21 Pulse Oximetry 100 01/23/25 15:21 Oxygen Delivery Room Air 01/23/25 09:48 Medical Decision Making MDM Narrative Medical decision making narrative: Differential diagnosis upper respiratory viral infection versus right tonsillar abscess CT soft tissue neck with IV contrast showed POSSIBLE TONSILLAR ABSCESS CAME TO THE EMERGENCY ROOM, EVALUATED THE PATIENT AND RECOMMENDED TO DISCHARGE PATIENT ON CLINDAMYCIN 300 T.I.D. FOR 10 DAYS AND TO STOP AUGMENTIN. THE PT WAS DISCHARGED TO HOME.THE PT,S CONDITION UPON DISCHARGE WAS FAIR,EDUCATION WAS PROVIDED TO THE PT IN REFERENCE TO THE FINAL IMPRESSION,DISCHARGE STUDY RESULTS,TREATMENT,PROGNOSIS AND NEED FOR FOLLOW UP . Differential Diagnosis Differential Diagnosis: ABOVE Vital Signs Vital Signs: Vital Signs Temperature 36.9 C 01/23/25 09:48 Pulse Rate 101 H 01/23/25 09:48 Respiratory Rate 20 01/23/25 09:48 Blood Pressure 120/80 01/23/25 09:48 Pulse Oximetry 97 01/23/25 09:48 Oxygen Delivery Room Air 01/23/25 09:48 Temperature 36.9 C 01/23/25 09:48 Pulse Rate 76 01/23/25 15:21 Respiratory Rate 20 01/23/25 15:21 Blood Pressure 122/80 01/23/25 15:21 Pulse Oximetry 100 01/23/25 15:21 Oxygen Delivery Room Air 01/23/25 09:48 Lab Data 01/23/25 10:51 01/23/25 10:51 Labs: Lab Results 01/23/25 Range/Units 10:51 WBC 11.3 H (4.5-10.0) K/mm3 RBC 4.44 (4.2-5.4) M/mm3 Hgb 12.9 (12.0-15.0) g/dL Hct 38.2 (37.0-47.0) % MCV 86.0 (80-100) fl MCH 29.1 (26-34) pg MCHC 33.8 (32-36) g/dl RDW 12.8 (11.5-14.5) % Plt Count 242 (150-375) k/mm3 MPV 8.4 (7.4-10.4) fl Immature Gran % (Auto) 0.3 (0-0.5) % Neut % (Auto) 75.7 H (45.5-73.1) % Lymph % (Auto) 13.7 L (18.3-44.2) % [place] % (Auto) 9.1 H (2.6-8.5) % Eos % (Auto) 0.9 (0-4.4) % Baso % (Auto) 0.3 (0.2-1.2) % Lymph # (Auto) 1.54 (0.9-3.2) K/mm3 [place] # (Auto) 1.0 H (0.1-0.6) K/mm3 Eos # (Auto) 0.1 (0-0.3) K/mm3 Baso # (Auto) 0.0 (0.0-0.1) K/mm3 Abs Immat Gran (auto) 0.03 (0.00-0.031) K/mm3 Absolute Neuts (auto) 8.6 H (1.3-6.7) K/mm3 Absolute Nucleated RBC 0.000 (0.0-0.012) K/mm3 Nucleated RBC % 0.0 (0.0-0.2) % Sodium 138 (137-145) mmol/L Potassium 4.1 (3.4-5.0) mmol/L Chloride 106 (98-107) mmol/L Carbon Dioxide 24 (22-30) mmol/L Anion Gap 8 (4-12) mmol/L BUN 8 (7-17) mg/dL Creatinine 0.57 L (0.7-1.0) mg/dL Estim Creat Clear Calc 122 ml/min Estimated GFR > 60 (59 - ) Glucose 97 (65-110) mg/dL Calcium 9.0 (8.4-10.2) mg/dL Total Bilirubin 0.4 (0.2-1.3) mg/dL AST 29 (14-36) U/L ALT 15 (6-35) U/L Alkaline Phosphatase 69 (38-126) U/L Total Protein 7.7 (6.3-8.2) g/dL Albumin 3.9 (3.5-5.1) g/dL Monoscreen Negative (Negative) Imaging Data Radiologist's impression: Impressions Soft Tissue Neck CT 01/23/25 14:11 IMPRESSION: Severe tonsillitis with early abscess formation . There is significant narrowing of the airway and close clinical observation is recommended. ENT consultation suggested. Follow-up recommended to evaluate for improvement. Critical Care Time Critical Care Time Critical Care Time: No Discharge Plan Discharge Clinical Impression: Acute tonsillitis Patient Disposition: Still a Patient Condition: Stable Additional Instructions: RETURN IF SYMPTOMS ARE WORSENING , CALL YOUR FAMILY PHYSICIAN FOR APPOINTMENT, TAKE TYLENOL, IBUPROFEN NEEDED FOR ACHES AND PAIN, CONTINUE HOME MEDICATIONS. Patient Language: [place] Prescriptions: New clindamycin HCl [Cleocin HCl] 300 mg capsule 300 mg PO Q8H 7 Days Qty: 30 0RF Follow-up/Referrals: Fariba Damian MD [Physician, Ear, Nose, Throat] - 01/27/25 Patrick,LEENA Mckeon [Primary Care Provider, Unknown]
--- OUTSIDE RECORDS SUMMARY | 2025-01-23 10:09 | XMS_ITS | Encounter Summary ---
Author Organization [facility] Address [address] [place] [address] Care Team Providers Care Tool Polisher Name Role Phone Rene Nguyen Primary Care Provider [phone] Encounter Details Date Type Department Care Team [...] Total Score: 1 05/03/19 22 1:54 PM SCREEN PRINTING CLOTH SPREADER documented as of this encounter Care Teams Tool Polisher Relationship Specialty [place] [address] [place] [address] PCP - General PHYSICIAN GORING CUTTER 09/26/24 documented as of this encounter
--- OUTSIDE RECORDS SUMMARY | 2025-01-23 10:09 | XMS_ITS | Clinical Summary ---
Author Organization [facility] Address [address] [place] [address] Care Team Providers Care Scheduling Clerk Name Role Phone Rene Nguyen Primary Care Provider [phone] Allergies Active Allergy Reactions Criticality Noted Date [...] Department Care Team Description 01/22/2025 1:11 PM [facility] Hospital Encounter [facility] [address] [place] [address] Rene Nguyen PA 01/22/2025 11:10 AM COMMUNITY CASE MANAGER Laboratory Only [address] [phone] Rene Nguyen PA 01/22/2025 10:00 AM COMMUNITY CASE MANAGER Office Visit [address] [phone] Rene Nguyen PA URI (Pt c/o fever and chills with nasal drainage, sore throat. Pt symptoms X 1 week) 01/22/2025 Travel 01/19/[address] [phone] Rene Nguyen PA School Excuse 01/18/2025 12:49 PM COMMUNITY CASE MANAGER - 01/18/2025 11:59 PM COMMUNITY CASE MANAGER Hospital Encounter [facility] [address] [place] [address] Serina Wooten PA Discharge Disposition: Home or Self Care (Routine Discharge) 01/18/2025 7:40 AM COMMUNITY CASE MANAGER Office Visit [address] [phone] Serina Wooten, PA Sore Throat (Sinus drainage for almost a week but Right gland swollen-x 2-3 days-drainage, fever yesterday) 01/18/2025 Results Follow-Up [address] [phone] Serina Wooten PA STREP A RAPID, CORONAVIRUS [...] Comments Blood Pressure 118/77 01/22/2025 10:04 AM COMMUNITY CASE MANAGER Pulse 125 01/22/2025 10:04 AM COMMUNITY CASE MANAGER Temperature 38.1 C (100.5 F) 01/22/2025 10:04 AM COMMUNITY CASE MANAGER Respiratory Rate 18 01/22/2025 10:04 AM COMMUNITY CASE MANAGER Oxygen Saturation 97% 01/22/2025 10:04 AM COMMUNITY CASE MANAGER Inhaled Oxygen Concentration - - Weight 73.9 kg (163 lb) 01/22/2025 10:04 AM COMMUNITY CASE MANAGER Height 157.5 cm (5' 2) 01/22/2025 10:04 AM COMMUNITY CASE MANAGER Body Mass Index 29.81 01/22/2025 10:04 AM COMMUNITY CASE MANAGER Plan of Treatment Health Maintenance Due Date [...] Meningococcal Vaccine Completed 10/23/2019, 015 PHQ-2 (Physician [place]) Completed 01/18/2025 RSV Immunizations Under 20 Months Aged Out No longer eligible based on patient's age to complete this topic Procedures Procedure Name Priority Date/Time Associated Diagnosis Comments COLLECTION VENOUS BLOOD VENIPUNCTURE Routine 01/22/2025 11:02 AM COMMUNITY CASE MANAGER Sore throat STREP A RAPID Routine 01/22/2025 Sore throat HETEROPHILE ANTIBODIES,SCREEN Routine 01/22/2025 Sore throat CULTURE STREP A Routine 01/18/2025 7:45 AM COMMUNITY CASE MANAGER Sore throat CORONAVIRUS (COVID-19) INFLUENZA A & B ANTIGEN IA PANEL Routine 01/18/2025 Suspected COVID-19 virus infection STREP A RAPID Routine 01/18/2025 Sore throat from Last 3 Months Results * STREP A RAPID (01/22/2025) Only the most recent of2 resultswithin the time period is included. RAPID STREP TEST NEGATIVE NEGATIVE [id number], [place] Internal Control: VALID VALID [id number], [place] STRUCTURE OF ANTERIOR REGION OF NECK / Unknown 01/22/2025 us Rene [facility] - GENERAL ORDERAB LES Final Result [id number], [place] [address] [place] [address], [place] [phone] * HETEROPHILE ANTIBODIES,SCREEN (01/22/2025) HETEROPHILE ANTIBODIES NEGATIVE NEGATIVE [id number], [place] Internal Control: VALID VALID [id number], [place] 01/22/2025 us Rene [facility] Final Result [id number], [place] [address] [place] [address], [place] [phone] * CULTURE STREP A (01/18/2025 7:45 AM COMMUNITY CASE MANAGER) SPEC DESCRIPTION THROAT 01/18/2025 12:51 PM COMMUNITY CASE MANAGER [facility] SPECIAL REQUESTS NO SPECIAL REQUEST 01/18/2025 12:51 PM COMMUNITY CASE MANAGER [facility] CULTURE RESULT NO STREPTOCOCCUS PYOGENES (GROUP A) ISOLATED 01/20/2025 7:17 AM COMMUNITY CASE MANAGER [facility] THROAT SWAB / Unknown 01/18/2025 7:45 AM COMMUNITY CASE MANAGER 01/18/2025 12:56 PM COMMUNITY CASE MANAGER Serina [facility] - GENERAL ORDER JUANITA Final Result [facility] [address] [place] [address], [place] [phone] [facility] [address] [place] [address], [place] [phone] * CORONAVIRUS (COVID-19) INFLUENZA A & B ANTIGEN IA PANEL (01/18/2025) CORONAVIRUS ANTIGEN IA NEGATIVE NEGATIVE [id number], [place] INFLUENZA A NEGATIVE NEGATIVE [id number], [place] INFLUENZA B NEGATIVE NEGATIVE [id number], [place] Internal Control: VALID VALID [id number], [place] NASAL STRUCTURE / Unknown 01/18/2025 Serina [facility] - GENERAL ORDER JUANITA Final Result Performing Organization Address [facility]/ZIP Co de Phone Number [phone], [place] [address] [place] [address], [place] [phone] from Last [address] [facility] Care Teams Scheduling Clerk Relationship Specialty [place] [address] [place] [address] PCP - General PHYSICIAN BIOGEOGRAPHER 09/26/24
--- OUTSIDE RECORDS SUMMARY | 2025-01-23 10:09 | XMS_ITS | Encounter Summary ---
Author Organization [facility] Address [address] [place] [address] Care Team Providers Care Welding Pantograph Machine Operator Name Role Phone Rene Nguyen Primary Care Provider Encounter Details Date Type Department Care Team (Late st Contact Info) Description 01/18/2025 Results Follow-Up [facility] Internal [facility] [id number] [place] [phone] [place] [address] [place] [address] STREP A RAPID, CORONAVIRUS (COVID-19) [...] things Not at all 01/18/2025 7:21 AM TEAROOM HOSTESS Tete Garcia MA Act jelena Feeling down, depressed, or hopeless Not at all 01/18/2025 7:21 AM TEAROOM HOSTESS Tete Garcia MA Active Patient Health Questionnaire-2 Score 0 01/18/2025 7:21 AM TEAROOM HOSTESS Tete Garcia MA Active documented as of this encounter Plan of Treatment Not on file documented as of this encounter Visit Diagnoses Not on filedocumented in this encounter Additional Health Concerns Infection Onset Date Last Indicated Resolved Time Respiratory Rule Out 01/18/2025 01/18/2025 025 7:45 AM TEAROOM HOSTESS Assessment Noted Time PHQ-9 Depression Total Score: 1 05/03/19 22 1:54 PM TEAROOM HOSTESS documented as of this encounter Care Teams Welding Pantograph Machine Operator Relationship Specialty [place] [address] [place] [address] PCP - General PHYSICIAN TAX AGENT 09/26/24 documented as of this encounter
[2025-01-23 11:08] LABS: Hematocrit 38.2 % (37.0-47.0); Hemoglobin 12.9 g/dL (12.0-15.0); Immature Granulocyte Percent A 0.3 % (0-0.5); Lymphocytes Absolute Auto 1.54 K/mm3 (0.9-3.2); Mean Corpuscular HGB Conc 33.8 g/dl (32-36); Mean Corpuscular Hemoglobin 29.1 pg (26-34); Mean Corpuscular Volume 86.0 fl (80-100); Nucleated Red Blood Cells Absolute Auto 0.000 K/mm3 (0.0-0.012); Nucleated Red Blood Cells Perc 0.0 % (0.0-0.2); Platelet Count Result 242 k/mm3 (150-375); Red Blood Count 4.44 M/mm3 (4.2-5.4); White Blood Count 11.3 K/mm3 (4.5-10.0)
[2025-01-23 11:17] LABS: Negative Monotest Control Negative (Negative); Positive Monotest Control Positive (Positive)
[2025-01-23 11:19] LABS: Alanine Aminotransferase 15 U/L (6-35); Albumin Level 3.9 g/dL (3.5-5.1); Alkaline Phosphatase 69 U/L (38-126); Anion Gap 8 mmol/L (4-12); Aspartate Amino Transferase 29 U/L (14-36); Bilirubin,Total 0.4 mg/dL (0.2-1.3); Blood Urea Nitrogen 8 mg/dL (7-17); Calcium 9.0 mg/dL (8.4-10.2); Carbon Dioxide 24 mmol/L (22-30); Chloride 106 mmol/L (98-107); Estimated CRCL calculation 122 ml/min; Estimated Glomerular Filt Rate > 60; Glucose 97 mg/dL (65-110); Potassium 4.1 mmol/L (3.4-5.0); Sodium 138 mmol/L (137-145); Total Protein 7.7 g/dL (6.3-8.2)
[2025-01-23 12:12] VITALS: BP 129/71; PULSE 76; RESP 20; O2SAT 99
[2025-01-23] MEDS: AMPICILLIN SODIUM/SULBACTAM 3 GM in SODIUM CHLORIDE 0.9% IV 100 ML 200 ML IVPB (13:13)
--- NOTE | 2025-01-23 14:50 | WPDCN ---
Assessment and Plan Assessment and plan (1) Acute tonsillitis: Qualifiers: Pharyngitis/tonsillitis etiology: unspecified etiology Qualified Code(s): J03.90 - Acute tonsillitis, unspecified Code(s): J03.90 - Acute tonsillitis, unspecified Status: Acute Plan 24 yo female with acute tonsillitis ,and throat pain I have personally reviewed the imaging study the patient performed and i agree with the report I have also reviewed the imaging study with the patient CT neck with contrast : There is no thickening of the prevertebral space or asymmetry of the base of the tongue. There is narrowing of the airway with edema of the pontine tonsillar tissue bilaterally with bilateral early probable abscesses noted the largest on the right side 7x 8 mm with dense probable phlegmon . There is no asymmetry of the vocal cords. No thyroid nodules. No lymphadenopathy in the anterior superior mediastinum. There are enlarged lymph nodes in the jugulodigastric spaces the largest right-sided 2.5 x 2 cm. Prominent posterior cervical lymph nodes. No supraclavicular lymphadenopathy. The submandibular and parotid glands appear unremarkable. The lung apices are unremarkable. No sclerotic or lytic lesions. No significant sinusitis. Procedure: FNA from right peritonsillar bed After getting proper consent from the patient ,under local anesthesia using Cetacaine oral spray 18 Gauge needle was inserted in 2 sites in the peritonsillar space ,no pus could be obtained Patient tolerated the procedure well EBL :Minimal A thorough discussion with the patient regarding admission and iv antibiotics vs discharge home with oral antibiotic ,patient prefers to continue treatment at home ,and she will observe any signs high fever,difficulty swallowing,difficulty breathing at which she will return to ER 1-stop Amoxicillin/clavulanic acid 2-start oral Dalacin 300 mg three time /day for 10 days+over the counter NSAIDS 3-in case of persistent fever,worsening of throat pain ,difficulty swallowing ,difficulty breathing then patient has to come to the ER 4-f/p in ENT clinnic in 1 month HPI Data of Consult Date/Time: 01/23/25 14:50 Primary Care Provider: Rene Nguyen, PA Consult Narrative Reason for consult: acute tonsillitis,suspected peritonsillar abcess Narrative: Quin Davila is a 24 year old female Review of Systems Review of Systems: All systems reviewed & are unremarkable except as noted in HPI and below Constitutional: Constitutional: Reports as per HPI ENT: Reports as per HPI Respiratory: Respiratory: Reports as per HPI Gastrointestinal: Gastrointestinal: Reports as per HPI [facility] Past Medical History Medical History Acute tonsillitis Meds Home Medications and Allergies Home Medications ?Medication ?Instructions ?Recorded ?Confirmed ?Type clindamycin HCl 300 mg capsule 300 mg PO Q8H 7 days #30 caps 01/23/25 Rx (Cleocin HCl) Allergies Allergy/AdvReac Type Severity Reaction Status Date / Time azithromycin Allergy Intermediate Hives Verified 01/23/25 09:59 Vital Signs Vital Signs - 24 hr 01/23/25 09:48 01/23/25 12:12 Temperature 36.9 C Pulse Rate 101 H 76 Respiratory Rate 20 20 Blood Pressure 120/80 129/71 Pulse Oximetry 97 99 Oxygen Delivery Room Air Exam Const: General: cooperative, healthy appearing, comfortable, no acute distress, well developed, alert, awake and Physically active Orientation/consciousness: oriented to person, oriented to place, oriented to time and patient oriented x3 HENMT: Head: normocephalic and atraumatic Ears: external ears normal and EAC's normal Face/Nose/Sinus: Normal external nose present and Normal nares present Other: bilateral enlarged tonsils ,the right +3,the left +2 Eyes: General: appearance normal, both eyes and all related structures Neck: Neck: normal visual inspection, full ROM and trachea midline Resp: Effort & Inspection: normal respiratory effort and able to speak in complete sentences Cardio: Rate: regular rate Neuro: General: oriented to person, oriented to place, oriented to time and patient oriented x3 Results Labs 01/23/25 10:51 01/23/25 10:51 Labs: Short CBC 01/23/25 Range/Units 10:51 WBC 11.3 H (4.5-10.0) K/mm3 Hgb 12.9 (12.0-15.0) g/dL Hct 38.2 (37.0-47.0) % Plt Count 242 (150-375) k/mm3 BMP 01/23/25 10:51 Sodium 138 Potassium 4.1 Chloride 106 Carbon Dioxide 24 BUN 8 Creatinine 0.57 L Glucose 97 Calcium 9.0 Liver Function 01/23/25 Range/Units 10:51 Total Bilirubin 0.4 (0.2-1.3) mg/dL AST 29 (14-36) U/L ALT 15 (6-35) U/L Alkaline Phosphatase 69 (38-126) U/L Albumin 3.9 (3.5-5.1) g/dL
[2025-01-23 15:21] VITALS: BP 122/80; PULSE 76; RESP 20; O2SAT 100
== END 2025-01-23 15:22 | disposition home or self-care (01) ==
PROVIDERS: Emergency Provider Emergency Medicine; PCP Physician Assistant
DX: J03.90 Acute tonsillitis, unspecified (principal)
CPT/HCPCS: 36415; 70491; 80053; 85025; 86308; 96365; 99284; A9270; J0295; J2004; Q9967